=== PATIENT | female | born 1975 ===

== ENCOUNTER 2018-11-29 12:31 | Emergency (ER) | payer OTHER ==
[2018-11-29 13:14] LABS: SQUAMOUS EPITHIAL 15 /hpf (0-5); URINE BACTERIA RARE (<OCC); URINE BILIRUBIN NEGATIVE (NEGATIVE); URINE BLOOD NEGATIVE (NEGATIVE); URINE CLARITY Hazy (Clear); URINE COLOR Yellow (YELLOW); URINE GLUCOSE (UA) NORMAL (Normal); URINE LEUKOCYTE ESTERASE NEG Leu/uL (Negative); URINE PROTEIN NEGATIVE (NEGATIVE); URINE UROBILINOGEN NORMAL mg/dL (0.2-1.0)
[2018-11-29 13:40] VITALS: O2SAT 97
--- NOTE | 2018-11-29 14:30 | C.PDOC ---
History Of Present Illness 43 y/o female presents to the ER complaining of fever, runny nose,cough, and body aches which has been present since yesterday. Patient states that the symptoms became worse today. Patient reports that she has associated nausea today. She notes that she has normal PO intake and normal urine output. Denies having CP, SOB, vomiting, and abdominal pain. HPI: Influenza Time Seen by Provider: 11/29/18 13:23 Chief Complaint: Flu-like Symptoms History Per: Patient Exam Limitations: no limitations Onset/Duration Of Symptoms: Days Symptoms include: fever, bodyaches, cough Risk factors for flu complications: No: adult > 65 years Past Medical History Reviewed: Historical Data, Nursing Documentation, Vital Signs Vital Signs: Last Vital Signs Temp 101.9 F H 11/29/18 13:40 Pulse 101 H 11/29/18 13:40 Resp 20 11/29/18 13:40 BP 102/67 11/29/18 13:40 Pulse Ox 97 11/29/18 13:40 - Medical History PMH: Hypercholesterolemia Surgical History: Family History: States: No Known Family Hx - Social History Hx Alcohol Use: No Hx Substance Use: No - Immunization History Hx Tetanus Toxoid Vaccination: No Hx Influenza Vaccination: No Hx Pneumococcal Vaccination: No Review Of Systems Except As Marked, All Systems Reviewed And Found Negative. Constitutional: Positive for: Fever, Malaise. Negative for: Chills ENT: Negative for: Ear Pain, Ear Discharge Cardiovascular: Negative for: Chest Pain, Orthopnea, Edema, Light Headedness Respiratory: Positive for: Cough. Negative for: Shortness of Breath Gastrointestinal: Positive for: Nausea. Negative for: Vomiting, Abdominal Pain Physical Exam - Physical Exam Appears: Non-toxic, No Acute Distress Skin: Normal Color, Warm, Diaphoretic (mildly diaphoretic), No Rash Head: Atraumatic, Normacephalic Eye(s): bilateral: Normal Inspection Ear(s): Bilateral: Normal Nose: Normal Oral Mucosa: Moist Throat: Normal, No Erythema, No Exudate Neck: Normal ROM, Supple Chest: Symmetrical Cardiovascular: Rhythm Regular Respiratory: Normal Breath Sounds, No Rales, No Rhonchi, No Wheezing Gastrointestinal/Abdominal: Normal Exam, Soft, No Tenderness, No Guarding, No Rebound Back: Normal Inspection, No CVA Tenderness Extremity: Normal ROM, No Swelling Neurological/Psych: Oriented x3, Normal Speech, Normal Motor, Normal Sensation Gait: Steady Medical Decision Making Medical Decision Making: Plan: --UA --Flu Swab --Claritin PO --Tamiflu PO --Prednisone PO Updates: Flu Swab is positive for Flu A. Patient has been discharged and instructed to follow up with doctor in 1-2 days. On re-exam, the patient is resting comfortably. Lungs are CTA, heart is RRR, abdomen is soft, non-tender and tolerating Po well. Follow up with the medical doctor within 1-2 days. Return if worsened. - Laboratory Results Lab Results: Urine Color Yellow (YELLOW) 11/29/18 13:04 Urine Clarity Hazy (Clear) 11/29/18 13:04 Urine pH 8.0 (5.0-8.0) 11/29/18 13:04 Ur Specific [place] 1.016 (1.003-1.030) 11/29/18 13:04 Urine Protein Negative mg/dL (NEGATIVE) 11/29/18 13:04 Urine Glucose (UA) Normal mg/dL (Normal) 11/29/18 13:04 Urine Ketones 2+ mg/dL (NEGATIVE) H 11/29/18 13:04 Urine Blood Negative (NEGATIVE) 11/29/18 13:04 Urine Nitrate Negative (NEGATIVE) 11/29/18 13:04 Urine Bilirubin Negative (NEGATIVE) 11/29/18 13:04 Urine Urobilinogen Normal mg/dL (0.2-1.0) 11/29/18 13:04 Ur Leukocyte Esterase Neg Agustin/uL (Negative) 11/29/18 13:04 Urine WBC (Auto) 1 /hpf (0-5) 11/29/18 13:04 Urine RBC (Auto) 2 /hpf (0-3) 11/29/18 13:04 Ur Squamous Epith Cells 15 /hpf (0-5) H 11/29/18 13:04 Urine Bacteria Rare (<OCC) 11/29/18 13:04 - ECG O2 Sat by Pulse Oximetry: 97 (on RA) Pulse Ox Interpretation: Normal Disposition - Disposition Referrals: Claire Rose DO [Resident] - Disposition: HOME/ ROUTINE Disposition Time: 14:30 Condition: GOOD Additional Instructions: Follow up with the medical doctor within 1-2 days. Return if worsened. 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 - Scribe Statement The provider has reviewed the documentation as recorded by the Jackie Cervantes Provider Attestation All medical record entries made by the Jackie were at my direction and personally dictated by me. I have reviewed the chart and agree that the record accurately reflects my personal performance of the history, physical exam, medical decision making, and the department course for this patient. I have also personally directed, reviewed, and agree with the discharge instructions and disposition.
[2018-11-29 15:07] VITALS: BP 105/67; PULSE 99; RESP 18; TEMP 100.1
== END 2018-11-29 15:08 | disposition home or self-care (01) ==
LOC: C.ER 12:31
DX: J11.1 Influenza due to unidentified influenza virus with other respiratory manifestations (principal)